=== PATIENT | female | born 1960 | race Caucasian/White ===

== ENCOUNTER 2017-04-21 21:00 | Emergency (ER) | payer BC ==
[2017-04-21 21:01] VITALS: BP 190/81; PULSE 62; RESP 15; TEMP 98.5; O2SAT 100
[2017-04-21] MEDS ORDERED: PERM5CRE11 TOPICAL (22:23)
--- NOTE | 2017-04-21 22:28 | PD ---
HPI Chief Complaint: Skin Problem Time Seen by Provider: 22:19 Travel History International Travel<30 days: No Contact w/Intl Traveler<30days: No Traveled to known affect area: No History of Present Illness HPI 56-year-old white female presents to emergency department requesting treatment of a scabies exposure. She states that she is visiting from out of town. She states that her mother lives in a nursing facility. She was just recently diagnosed with scabies. She states that she has had close physical contact with her is concerned that she may have contracted scabies. She denies any rash. She states that she does feel itchy since then has not seen any lesions. She denies any other medical complaints. [facility] Past Medical History Narrative Medical Hypertension, hypothyroidism Tetanus Vaccination: < 5 Years ?: Not Past Surgical History Surgical History: No Previous Surgery Social History Alcohol Use: Yes Tobacco Use: No Substance Use: No Allergies-Medications (Allergen,Severity, Reaction): Coded Allergies: AARON Inhibitors (Verified Allergy, Severe, 04/21/17) Reported Meds & Prescriptions Reported Meds & Active Scripts Active Elimite Topical (Permethrin) 5% Cream 1 Applic TOPICAL ONCE Review of Systems Except as stated in HPI: all other systems reviewed are Neg Skin: Positive Itching, No Rash, No Dryness, No Lumps, No Change in Pigmentation, No Change in nails, No Lesions Physical Exam Narrative GENERAL: This is a well-nourished, well-developed patient, in no apparent distress. SKIN: No rashes, ecchymoses or lesions. Warm and dry. HEAD: Atraumatic. Normocephalic. EYES: PERRL, EOMI, no discharge or injection. No scleral icterus. EARS: Clear NOSE: Nasal turbinates appear normal. THROAT: Mucosa pink and moist. Airway patent. NECK: Trachea midline. supple, moves head freely. LUNGS: Clear to auscultation. CV: Regular in rhythm. ABDOMEN: Soft nontender. EXT: No clubbing cyanosis or edema. Data Data Last Documented VS Vital Signs Date Time Temp Pulse Resp B/P (MAP) Pulse Ox O2 Delivery O2 Flow Rate FiO2 04/21/17 21:01 98.5 62 15 190/81 (117) 100 Room Air MDM Medical Decision Making Medical Screen Exam Complete: Yes Emergency Medical Condition: Yes Medical Record Reviewed: Yes Differential Diagnosis MDM: High Differential diagnoses: Abscess, folliculitis, cellulitis, lymphangitis, abrasion, contact dermatitis, scabies Narrative Course This is scabies exposure Diagnosis Primary Impression: Scabies exposure Patient Instructions: General Instructions Additional Instructions: Medications as directed. Follow-up with a medical doctor as needed. Med/Other Pt SpecificInfo: Prescription(s) given Scripts Permethrin Topical (Elimite Topical) 5% Cream 1 APPLIC TOPICAL ONCE for Scabies, #1 TUBE 0 Refills Prov: Robert Early MD 04/21/17 Disposition: 01 DISCHARGE HOME Condition: Stable Julián Puentes Apr 21, 2017 22:28
== END 2017-04-21 22:30 | disposition home or self-care (01) ==
LOC: NEPD 21:00
DX: Z20.7 Contact with and (suspected) exposure to pediculosis, acariasis and other infestations (principal); I10 Essential (primary) hypertension; E03.9 Hypothyroidism, unspecified
CPT/HCPCS: 99283